=== PATIENT | male | born 1960 | race Caucasian/White ===

== ENCOUNTER 2022-08-28 14:00 | Inpatient (IN) | payer OTHER ==
[2022-08-28 16:03] VITALS: BMI 24.7
[2022-08-28] MEDS ORDERED: guaiFENesin 200 MG/10 ML 10 ML UNIT-DOSE CUPS PO PRN (18:39)
[2022-08-28] MEDS ORDERED: MAGNESIUM HYDROX 2400MG/30ML ORAL SUSPENSION 30 ML CUP PO PRN (18:39)
[2022-08-28] MEDS ORDERED: IBUPROFEN 400 MG TABLET (FP) PO PRN (18:39)
[2022-08-28] MEDS ORDERED: NALOXONE HCL 0.4 MG/ML VIAL IM PRN (18:39)
[2022-08-28] MEDS ORDERED: BISMUTH SUBSALICYLATE 524 MG/30 ML PO PRN (18:39)
[2022-08-28] MEDS ORDERED: LOPERAMIDE HCL 2 MG CAPSULE PO PRN (18:39)
[2022-08-28] MEDS ORDERED: MAG HYDROX/AL HYDROX/SIMETH 30 ML UNIT-DOSE CUP PO PRN (18:39)
[2022-08-28] MEDS ORDERED: NALOXONE HCL (KLOXXADO) 8 MG SPRAY NS PRN (18:39)
[2022-08-28] MEDS ORDERED: ACETAMINOPHEN 325 MG TABLET (FP) PO PRN ×2 (18:39)
[2022-08-28] MEDS ORDERED: BENZOCAINE/MENTHOL (CHLORASEPTIC ) LOZENGE MM PRN (18:39)
[2022-08-28] MEDS ORDERED: P-EPHED 60MG/TRIPROLIDI 2.5MG TABLET PO PRN (18:39)
[2022-08-28] MEDS ORDERED: DICYCLOMINE HCL 10 MG CAPSULE PO PRN (18:39)
[2022-08-28] MEDS ORDERED: IBUPROFEN 600 MG TABLET (FP) PO PRN (18:39)
[2022-08-28] MEDS ORDERED: MAGNESIUM CITRATE 300 ML BOTTLE PO PRN (18:39)
[2022-08-28] MEDS ORDERED: ONDANSETRON *ODT* 4 MG TABLET SL PRN (18:39)
[2022-08-28] MEDS: LOSARTAN POTASSIUM 25 MG TABLET PO SCH (19:22)
[2022-08-28] MEDS ORDERED: chlordiazePOXIDE HCL 25 MG CAPSULE ONE (19:32)
[2022-08-28] MEDS ORDERED: ASPIRIN 81 MG CHEWABLE TABLETS ONE (19:33)
[2022-08-28] MEDS: ATORVASTATIN CA 20 MG TABLET (FP) PO SCH (22:14)
[2022-08-28] MEDS: hydrOXYzine PAMOATE 25 MG CAPSULE (FP) PO PRN (22:15)
[2022-08-28] MEDS: THIAMINE HCL 100 MG TABLET (FP) PO SCH (22:15)
[2022-08-28] MEDS: MELATONIN 5 MG TABLETS PO PRN (22:15)
[2022-08-29] MEDS: metFORMIN HCL 500 MG TABLET (FP) PO SCH ×3 (06:06→18:20)
[2022-08-29] MEDS: amLODIPine BESYLATE 5 MG TABLET (FP) PO SCH (09:52)
[2022-08-29] MEDS: PRENATAL VITAMINS W/ FOLIC ACID TABLET (FP) PO SCH (09:52)
[2022-08-29] MEDS: LOSARTAN POTASSIUM 25 MG TABLET PO SCH (09:52)
[2022-08-29 11:44] LABS: ALBUMIN 3.5 g/dl (3.4-5.0); BLOOD UREA NITROGEN 19.2 mg/dL (7-18); CALCIUM 9.3 mg/dL (8.5-10.1)
[2022-08-29 11:48] LABS: CREATININE 0.8 mg/dL (0.55-1.3); HEMATOCRIT 38.6 % (35.4-49); HEMOGLOBIN 12.7 GM/dL (11.7-16.9); MCHC 32.9 g/dl (32.0-35.9); MEAN CELL VOLUME 75.9 fl (80-96); MEAN PLT VOLUME 8.9 fl (7.5-11.1); PLATELET COUNT 78 10^3/uL (134-434); RBC 5.09 M/mm3 (4.00-5.60); RDW 21.6 % (11.9-15.9); WHITE BLOOD COUNT 4.4 K/mm3 (4.0-10.0)
[2022-08-29 11:50] LABS: BILIRUBIN,TOTAL 0.5 mg/dL (0.2-1); TOT PROT 7.4 g/dl (6.4-8.2)
[2022-08-29] MEDS ORDERED: cloNIDine HCL 0.1 MG TABLET PO PRN (12:15)
[2022-08-29] MEDS ORDERED: methaDONE HCL 10 MG TABLET (FOR DETOX USE ONLY) PO ONE (12:15)
[2022-08-29 12:34] LABS: HIV INTERPRETATION NEGATIVE (NEGATIVE)
[2022-08-29] MEDS: METHOCARBAMOL 500 MG TABLET PO PRN (22:03)
[2022-08-29] MEDS: hydrOXYzine PAMOATE 25 MG CAPSULE (FP) PO PRN (22:03)
[2022-08-29] MEDS: MELATONIN 5 MG TABLETS PO PRN (22:03)
[2022-08-29] MEDS: THIAMINE HCL 100 MG TABLET (FP) PO SCH (22:03)
[2022-08-29] MEDS: ATORVASTATIN CA 20 MG TABLET (FP) PO SCH (22:03)
[2022-08-30] MEDS: metFORMIN HCL 500 MG TABLET (FP) PO SCH ×3 (06:14→17:05)
[2022-08-30] MEDS: PRENATAL VITAMINS W/ FOLIC ACID TABLET (FP) PO SCH (10:15)
[2022-08-30] MEDS: amLODIPine BESYLATE 5 MG TABLET (FP) PO SCH (10:16)
[2022-08-30] MEDS: LOSARTAN POTASSIUM 25 MG TABLET PO SCH (10:16)
[2022-08-30] MEDS: hydrOXYzine PAMOATE 25 MG CAPSULE (FP) PO PRN (21:56)
[2022-08-30] MEDS: ATORVASTATIN CA 20 MG TABLET (FP) PO SCH (21:56)
[2022-08-30] MEDS: THIAMINE HCL 100 MG TABLET (FP) PO SCH (21:56)
[2022-08-30] MEDS: MELATONIN 5 MG TABLETS PO PRN (21:56)
[2022-08-30] MEDS: METHOCARBAMOL 500 MG TABLET PO PRN (21:56)
[2022-08-31] MEDS: metFORMIN HCL 500 MG TABLET (FP) PO SCH ×3 (06:32→18:10)
[2022-08-31] MEDS ORDERED: methaDONE HCL 10 MG TABLET (FOR DETOX USE ONLY) PO ONE (10:00)
[2022-08-31] MEDS: LOSARTAN POTASSIUM 25 MG TABLET PO SCH (10:06)
[2022-08-31] MEDS: amLODIPine BESYLATE 5 MG TABLET (FP) PO SCH (10:06)
[2022-08-31] MEDS: PRENATAL VITAMINS W/ FOLIC ACID TABLET (FP) PO SCH (10:06)
[2022-08-31] MEDS: THIAMINE HCL 100 MG TABLET (FP) PO SCH (22:01)
[2022-08-31] MEDS: ATORVASTATIN CA 20 MG TABLET (FP) PO SCH (22:01)
[2022-08-31] MEDS: METHOCARBAMOL 500 MG TABLET PO PRN (22:01)
[2022-08-31] MEDS: MELATONIN 5 MG TABLETS PO PRN (22:01)
[2022-09-01] MEDS: metFORMIN HCL 500 MG TABLET (FP) PO SCH ×3 (06:14→17:25)
[2022-09-01] MEDS: METHOCARBAMOL 500 MG TABLET PO PRN ×2 (10:37→22:04)
[2022-09-01] MEDS: amLODIPine BESYLATE 5 MG TABLET (FP) PO SCH (10:38)
[2022-09-01] MEDS: LOSARTAN POTASSIUM 25 MG TABLET PO SCH (10:38)
[2022-09-01] MEDS: PRENATAL VITAMINS W/ FOLIC ACID TABLET (FP) PO SCH (10:38)
[2022-09-01] MEDS: THIAMINE HCL 100 MG TABLET (FP) PO SCH (22:03)
[2022-09-01] MEDS: ATORVASTATIN CA 20 MG TABLET (FP) PO SCH (22:03)
[2022-09-01] MEDS: MELATONIN 5 MG TABLETS PO PRN (22:03)
[2022-09-02] MEDS: metFORMIN HCL 500 MG TABLET (FP) PO SCH ×3 (06:22→16:35)
[2022-09-02] MEDS ORDERED: methaDONE HCL 10 MG TABLET (FOR DETOX USE ONLY) PO ONE (10:00)
[2022-09-02] MEDS: LOSARTAN POTASSIUM 25 MG TABLET PO SCH (10:14)
[2022-09-02] MEDS: PRENATAL VITAMINS W/ FOLIC ACID TABLET (FP) PO SCH (10:15)
[2022-09-02] MEDS: amLODIPine BESYLATE 5 MG TABLET (FP) PO SCH (10:15)
[2022-09-02] MEDS: METHOCARBAMOL 500 MG TABLET PO PRN ×2 (17:35→22:06)
[2022-09-02] MEDS: hydrOXYzine PAMOATE 25 MG CAPSULE (FP) PO PRN ×2 (17:35→22:05)
[2022-09-02] MEDS: ATORVASTATIN CA 20 MG TABLET (FP) PO SCH (22:05)
[2022-09-02] MEDS: THIAMINE HCL 100 MG TABLET (FP) PO SCH (22:05)
[2022-09-02] MEDS: MELATONIN 5 MG TABLETS PO PRN (22:05)
[2022-09-03] MEDS: metFORMIN HCL 500 MG TABLET (FP) PO SCH ×2 (06:27→12:05)
[2022-09-03] MEDS: LOSARTAN POTASSIUM 25 MG TABLET PO SCH (09:50)
[2022-09-03] MEDS: PRENATAL VITAMINS W/ FOLIC ACID TABLET (FP) PO SCH (09:50)
[2022-09-03] MEDS: amLODIPine BESYLATE 5 MG TABLET (FP) PO SCH (09:50)
[2022-09-03 12:48] VITALS: BP 137/88; PULSE 66; RESP 18; TEMP 98.4
== END 2022-09-03 13:51 | disposition other institution (70) | DRG 897 ==
LOC: YASAS 14:00 → Y3N 18:09 → UNDOADMIN 18:09
PROVIDERS: ADMIT Allergy & Immunology; ATTEND Surgery
PROC: HZ2ZZZZ Detoxification Services for Substance Abuse Treatment (ICD-10-PCS; principal; 2022-08-28)
DX: F11.23 Opioid dependence with withdrawal (principal); F19.24 Other psychoactive substance dependence with psychoactive substance-induced mood disorder; F32.A Depression, unspecified; I10 Essential (primary) hypertension; E78.5 Hyperlipidemia, unspecified; E11.9 Type 2 diabetes mellitus without complications; Z79.84 Long term (current) use of oral hypoglycemic drugs; B18.2 Chronic viral hepatitis C; Z87.890 Personal history of sex reassignment; Z28.310 Unvaccinated for COVID-19; Z28.9 Immunization not carried out for unspecified reason
CPT/HCPCS: 36415; 80053; 82962; 85027; 86780; 87389; 87811; C9803-CS; U0003; U0005